=== PATIENT | male | born 1995 | race Caucasian/White ===

== ENCOUNTER 2016-11-08 18:33 | Emergency (ER) | payer BC ==
[2016-11-08 19:41] VITALS: BP 133/88
--- NOTE | 2016-11-08 21:26 | UC ---
Abdominal Pain Male HPI - HPI Summary HPI Summary: mid-abdomen pain, intermittent, for months. Comes and goes without pattern. Lasts an hour. Antacids sometimes help, sometimes not. He is worried it has to do with an umbilical hernia. Burps a lot and the gas smells "like sulfur". No fever. No vomiting or diarrhea. Occasional constipation. Not related to food. No FH gastrointestinal disorders. "What did you eat today?" "Chicken pot pie and [employer]." No weight loss recently. 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 Negative: Fever, Cough, Dizzy, Blood in Stool, Urinary Symptoms, Decreased Appetite, Vomiting, Diarrhea - Risk Factors Testicular Torsion: Negative Cardiac Risk Factors: Negative - Allergies/Home Medications Allergies/Adverse Reactions: Allergies Allergy/AdvReac Type Severity Reaction Status Date / Time No Known Allergies Allergy Verified 11/08/16 19:40 PMH/Surg Hx/FS Hx/Imm Hx Endocrine History Of: Denies: Diabetes, Thyroid Disease, Hyperthyroidism, Hypothyroidism, Dyslipidemia Cardiovascular History Of: Reports: Cardiac Disorders - "bicuspid aortic valve" Denies: Hypertension, Pacemaker/ICD, Myocardial Infarction, Congestive Heart Failure, Atrial Fibrillation, Deep Vein Thrombosis, Bleeding Disorders Respiratory History Of: Denies: COPD, Asthma, Bronchitis, Pneumonia, Pulmonary Embolism GI/ History Of: Denies: Gastroesophageal Reflux, Ulcer, Gastrointestinal Bleed, Gall Bladder Disease, Kidney Stones, Diverticulitis, Renal Disease, Urosepsis Neurological History Of: Denies: TIA, CVA, Dementia, Seizures, Migraine Psychological History Of: Denies: Anxiety, Depression, Bipolar Disorder, Schizophrenia, Post Traumatic Stress Disorder Cancer History Of: Denies: Lung Cancer, Colorectal Cancer, Breast Cancer, Prostate Cancer, Cervical Cancer Other History Of: Negative For: HIV, Hepatitis B, Hepatitis C, Anticoagulant Therapy - Surgical History Surgical History: None - Family History Known Family History: Positive: Cardiac Disease, Hypertension - Social History Occupation: Employed Full-time Lives: With Family Alcohol Use: Occasionally Substance Use Type: None Smoking Status (MU): Never Smoked Tobacco - Immunization History Most Recent Tetanus Shot: 04/27/16 Review of Systems Constitutional: Negative Skin: Negative Eyes: Negative ENT: Negative Respiratory: Negative Cardiovascular: Negative Gastrointestinal: Abdominal Pain Genitourinary: Negative Motor: Negative Neurovascular: Negative Musculoskeletal: Negative Neurological: Negative Psychological: Negative All Other Systems Reviewed And Are Negative: Yes Physical Exam Triage Information Reviewed: Yes Appearance: Well-Appearing, No Pain Distress, Well-Nourished Vital Signs: Initial Vital Signs Temp 99.1 F 11/08/16 19:34 Pulse 77 11/08/16 19:34 Resp 18 11/08/16 19:34 BP 133/88 11/08/16 19:34 Pulse Ox 99 11/08/16 19:34 Vital Signs Reviewed: Yes Eye Exam: Normal Neck exam: Normal Respiratory Exam: Normal Cardiovascular Exam: Normal Abdomen Description: Positive: Other: - Mild LLQ tenderness. No rebound or guarding. Soft, No organomegaly. Normal BS. Negative: CVA Tenderness (R), CVA Tenderness (L), Guarding, Hernia @, Hepatomegaly, McBurney's Point Tenderness, Peritoneal Signs Bowel Sounds: Positive: Present Musculoskeletal Exam: Normal Neurological Exam: Normal Psychological Exam: Normal Skin Exam: Normal Diagnostics - Laboratory Diagnostic Studies Completed/Ordered: AXR normal Abd Pain Male Course/Dx - Differential Dx/Clinical Impression Provider Diagnoses: gastritis Discharge - Discharge Plan Condition: Stable Disposition: HOME Prescriptions: Omeprazole CAP* [Prilosec CAP* 20 MG] 20 mg PO BEDTIME #30 cap. Patient Education Materials: Gastritis (ED) Referrals: JESUS Kendall [Primary Care Provider] - Jun Gallagher MD [Medical Doctor] - Additional Instructions: If our treatment isn't helping after a week, contact Dr. Gallagher ( Gastroenterology) for further evaluation
--- NOTE | 2016-11-08 21:54 | RAD ---
INDICATION: Evaluate for ileus COMPARISON: None TECHNIQUE: Erect and supine views of the abdomen are submitted. FINDINGS: Bones: There are no acute bony findings. Soft tissues: The soft tissues appear normal. The psoas margins are sharp. Bowel gas pattern: Normal Calcifications: There are no abnormal calcifications. Other: None IMPRESSION: NORMAL STUDY.
[2016-11-08] MEDS ORDERED: Famotidine TAB* 20 MG PO ONE (22:03)
== END 2016-11-08 22:13 | disposition home or self-care (01) ==
LOC: UCCORT 18:33
DX: K29.70 Gastritis, unspecified, without bleeding (principal)
CPT/HCPCS: 74020; 99212; A9270-GY; G0463

== ENCOUNTER 2017-07-17 11:08 | Emergency (ER) | payer BC ==
--- NOTE | 2017-07-17 11:17 | UC ---
Cardiac HPI - HPI Summary HPI Summary: 22 YEAR OLD MALE PRESENTS WITH LEFT SIDED INTERMITTENT CHEST PAIN X 2 DAYS - History of Current Complaint Stated Complaint: CHEST PAINS Time Seen by Provider: 07/17/17 11:17 Hx Obtained From: Patient Onset/Duration: Lasting Days Initial Severity: Moderate Current Severity: Moderate Chest Pain Location: Left Anterior - Allergy/Home Medications Allergies/Adverse Reactions: Allergies Allergy/AdvReac Type Severity Reaction Status Date / Time No Known Allergies Allergy Verified 07/17/17 11:23 Home Medications: Home Medications NK [No Home Medications Reported] 07/17/17 [History Confirmed 07/17/17] PMH/Surg Hx/FS Hx/Imm Hx Previously Healthy: Yes Other History Of: Negative For: HIV, Hepatitis B, Hepatitis C, Anticoagulant Therapy - Surgical History Surgical History: None - Family History Known Family History: Positive: Cardiac Disease, Hypertension - Social History Alcohol Use: Occasionally Substance Use Type: None Smoking Status (MU): Never Smoked Tobacco - Immunization History Most Recent Tetanus Shot: 04/27/16 Review of Systems Constitutional: Negative Skin: Negative Eyes: Negative ENT: Negative Respiratory: Negative Cardiovascular: Chest Pain Gastrointestinal: Negative Genitourinary: Negative Motor: Negative Neurovascular: Negative Musculoskeletal: Negative Neurological: Negative Psychological: Negative All Other Systems Reviewed And Are Negative: Yes Physical Exam Triage Information Reviewed: Yes Appearance: Well-Appearing Vital Signs Reviewed: Yes Eye Exam: Normal ENT Exam: Normal Dental Exam: Normal Neck exam: Normal Neck: Positive: 1 Respiratory Exam: Normal Cardiovascular Exam: Normal Abdominal Exam: Normal Musculoskeletal Exam: Normal Neurological Exam: Normal Psychological Exam: Normal Skin Exam: Normal - Clinical Impression Provider Diagnoses: CHEST PAIN Discharge - Discharge Plan Condition: Stable Disposition: HOME Patient Education Materials: Chest Pain (ED) Referrals: JESUS Kendall [Primary Care Provider] - Additional Instructions: PATIENT SUGGESTED TO GO TO THE ER FOR CARDIAC WORKUP.
[2017-07-17 11:23] VITALS: BP 125/75
== END 2017-07-17 11:29 | disposition home or self-care (01) ==
LOC: UCCORT 11:08
DX: R07.9 Chest pain, unspecified (principal)
CPT/HCPCS: 93005; 99202; G0463

== ENCOUNTER 2018-04-18 11:34 | Emergency (ER) | payer BC, OTHER ==
[2018-04-18 11:48] VITALS: BP 130/89
[2018-04-18] MEDS ORDERED: BSS OPTH.SOL* BTL ONE (11:52)
[2018-04-18] MEDS ORDERED: Fluorescein Sod TOPICAL 0.6* 0.6 MG TEST OPHTHALMIC ONE (11:52)
[2018-04-18] MEDS ORDERED: Tetracaine 0.5% OPTH.SOL 4 ML* 1 DROP BTL ONE (11:52)
--- NOTE | 2018-04-18 12:47 | UC ---
Eye Complaint HPI - HPI Summary HPI Summary: The patient is a 23-year-old male with a right eye foreign body sensation since about 10 AM this morning. This occurred at work while he was moving some rebar. Initially the pain was severe at 7 out of 10. While driving here his symptoms decreased and are now at 3-4 out of 10. He has no photophobia. He has a foreign body sensation under his right upper eyelid. Has some tearing. - History of Current Complaint Chief Complaint: UCEye Stated Complaint: WC - RIGHT EYE Time Seen by Provider: 04/18/18 12:25 Hx Obtained From: Patient Onset/Duration: Sudden Onset, Lasting Hours Timing: Constant Severity Initially: Severe Severity Currently: Mild Pain Intensity: 4 Pain Scale Used: 0-10 Numeric Location of Injury: Eye Lid (upper) Aggravating Factor(s): Nothing Associated Signs And Symptoms: Positive: Drainage (Clear) - Risk Factors Penetrating Injury Risk Factor: Negative Globe Rupture Risk Factors: Negative Acute Glaucoma Risk Factors: Negative Optic Artery Occlusion Risk Factors: Negative - Allergies/Home Medications Allergies/Adverse Reactions: Allergies Allergy/AdvReac Type Severity Reaction Status Date / Time No Known Allergies Allergy Verified 04/18/18 11:43 PMH/Surg Hx/FS Hx/Imm Hx Previously Healthy: Yes Other History Of: Negative For: HIV, Hepatitis B, Hepatitis C, Anticoagulant Therapy - Surgical History Surgical History: None - Family History Known Family History: Positive: Cardiac Disease, Hypertension - Social History Alcohol Use: Occasionally Substance Use Type: None Smoking Status (MU): Never Smoked Tobacco - Immunization History Most Recent Influenza Vaccination: not 2017 Most Recent Tetanus Shot: 04/27/16 Review of Systems Constitutional: Negative Skin: Negative Eyes: Other - FB sensation under right upper eyelid ENT: Negative Respiratory: Negative Cardiovascular: Negative Gastrointestinal: Negative Genitourinary: Negative Motor: Negative Neurovascular: Negative Musculoskeletal: Negative Neurological: Negative Psychological: Negative Is Patient Immunocompromised?: No All Other Systems Reviewed And Are Negative: Yes Physical Exam Triage Information Reviewed: Yes Appearance: Well-Appearing, No Pain Distress, Well-Nourished Vital Signs: Initial Vital Signs Temp 98.3 F 04/18/18 11:44 Pulse 73 04/18/18 11:44 Resp 16 04/18/18 11:44 BP 130/89 04/18/18 11:44 Pulse Ox 100 07/05/18 11:44 Vital Signs Reviewed: Yes Eyes: Positive: Conjunctiva Clear, Other: - eomi/perrl, no FB noted, (-) fluorescein staining defect, right upper lid everted and no FB noted. ENT: Positive: Hearing grossly normal. Negative: Nasal congestion, Nasal drainage, Trismus, Muffled voice, Hoarse voice Neck: Positive: Supple Respiratory: Positive: Lungs clear, Normal breath sounds, No respiratory distress, No accessory muscle use Cardiovascular: Positive: RRR, No Murmur Musculoskeletal: Positive: ROM Intact, No Edema Neurological: Positive: Alert Psychological Exam: Normal Skin Exam: Normal Eye Complaint Course/Dx - Differential Dx/Diagnosis Provider Diagnoses: right eye foreign body sensation Discharge - Sign-Out/Discharge Documenting (check all that apply): Discharge/Admit/Transfer - Discharge Plan Condition: Stable Disposition: HOME Prescriptions: Erythromycin OPHTH.OINT* [Ilotycin OPHTH.OINT*] 1 applic RIGHT EYE TID 3 Days # 1 ophth.oint Patient Education Materials: Eye Foreign Body (ED) Referrals: Trey Farias MD [Medical Doctor] - 1 Day JESUS Kendall [Primary Care Provider] - If Needed Brie Knapp MD [Medical Doctor] - 1 Day Additional Instructions: I saw no foreign body in your eye I saw no corneal abrasion If you still have a FB sensation in you right eye tomorrow I suggest you see a specialist - Billing Disposition and Condition Condition: STABLE Disposition: Home
== END 2018-04-18 12:47 | disposition home or self-care (01) ==
LOC: UCCORT 11:34
DX: H57.8 Other specified disorders of eye and adnexa (principal)
CPT/HCPCS: 99212; A9270-GY; G0463

== ENCOUNTER 2018-10-05 19:03 | Emergency (ER) | payer BC, OTHER ==
[2018-10-05 20:06] VITALS: BP 135/91
[2018-10-05] MEDS ORDERED: Acyclovir* 200 MG CAP PO ONE (20:22)
--- NOTE | 2018-10-05 20:28 | UC ---
Skin Complaint HPI - HPI Summary HPI Summary: C/O rash around the right flank after having a numb area on the right side of the abdomen. Had recent hospitalization for chest pain due to GERD/ dysphagia. - History of Current Complaint Chief Complaint: UCSkin Time Seen by Provider: 10/05/18 20:14 Stated Complaint: RASH ON BACK Hx Obtained From: Patient Onset/Duration: Sudden Onset, Lasting Days - 1, Worse Since - onset Timing: Constant Onset Severity: Mild Current Severity: Moderate Pain Intensity: 7 Location: Discrete - right flank Character: Redness, Raised Aggravating Factor(s): Touch Alleviating Factor(s): Nothing Associated Signs & Symptoms: Positive: Numbness, Rash. Negative: Fever, Chills , Hoarseness, Throat Tightening, Abdominal Pain - Allergy/Home Medications Allergies/Adverse Reactions: Allergies Allergy/AdvReac Type Severity Reaction Status Date / Time No Known Allergies Allergy Verified 10/05/18 20:00 Home Medications: Home Medications Omeprazole CAP* [Prilosec CAP* 20 MG] 20 mg PO DAILY 10/05/18 [History Confirmed 10/05/18] PMH/Surg Hx/FS Hx/Imm Hx GI/ History: Gastroesophageal Reflux Other History Of: Negative For: HIV, Hepatitis B, Hepatitis C, Anticoagulant Therapy - Surgical History Surgical History: None - Family History Known Family History: Positive: Cardiac Disease, Hypertension - Social History Occupation: Employed Full-time Lives: With Family Alcohol Use: Occasionally Substance Use Type: None Smoking Status (MU): Never Smoked Tobacco - Immunization History Most Recent Influenza Vaccination: not 2017 Most Recent Tetanus Shot: 04/27/16 Review of Systems All Other Systems Reviewed And Are Negative: Yes Skin: Positive: Rash Neurological: Positive: Numbness Is Patient Immunocompromised?: No Physical Exam Triage Information Reviewed: Yes Appearance: Well-Appearing, No Pain Distress, Obese Vital Signs: Initial Vital Signs Temp 99.1 F 10/05/18 20:02 Pulse 101 10/05/18 20:02 Resp 24 10/05/18 20:02 BP 135/91 10/05/18 20:02 Pulse Ox 98 10/05/18 20:02 Vital Signs Reviewed: Yes Eyes: Positive: Conjunctiva Clear Neck exam: Normal Respiratory Exam: Normal Cardiovascular Exam: Normal Musculoskeletal Exam: Normal Neurological Exam: Normal Skin: Positive: Rashes - grouped papules in a dermatomal distribution right flank. Images Front/Back of Body, Lg (Richardson): 1 - grouped papules Course/Dx - Differential Diagnoses - Skin Complaint Differential Diagnoses: Cellulitis, Eczema, Varicella Zoster - Diagnoses Provider Diagnosis: Zoster Discharge - Sign-Out/Discharge Documenting (check all that apply): Patient Departure All imaging exams completed and their final reports reviewed: No Studies - Discharge Plan Condition: Stable Disposition: HOME Prescriptions: ValACYclovir (*) [Valtrex 1 GM(*)] 1 gm PO TID #21 tab Patient Education Materials: Shingles (ED), Valacyclovir (By mouth) Referrals: No Primary Care Phys,NOPCP [Primary Care Provider] - - Billing Disposition and Condition Condition: STABLE Disposition: Home
== END 2018-10-05 20:38 | disposition home or self-care (01) ==
LOC: UCCORT 19:03
DX: B02.9 Zoster without complications (principal)
CPT/HCPCS: 99212; A9270-GY; G0463

== ENCOUNTER 2019-11-18 15:46 | Emergency (ER) | payer BC ==
[2019-11-18 17:01] VITALS: BP 144/97
--- NOTE | 2019-11-18 17:07 | UC ---
FLU HPI - HPI Summary HPI Summary: 24-year-old male presents with 4 day history of sore throat. States that the onset of symptoms also had some mild body aches which have since subsided. He notes an occasional dry nonproductive cough. Denies fever, chills, nasal congestion, ear pain, dysphagia, chest pain, shortness of breath, abdominal pain , nausea, or vomiting. - History of Current Complaint Chief Complaint: UCGeneralIllness Stated Complaint: SORE THROAT Time Seen by Provider: 11/18/19 16:50 Hx Obtained From: Patient Pain Intensity: 6 - Allergy/Home Medications Allergies/Adverse Reactions: Allergies Allergy/AdvReac Type Severity Reaction Status Date / Time No Known Allergies Allergy Verified 11/18/19 16:56 Home Medications: Home Medications Acetaminophen [Tylenol Extra Strength] 2 tab PO ONCE 11/18/19 [History Confirmed 11/18/19] PMH/Surg Hx/FS Hx/Imm Hx GI/ History: Gastroesophageal Reflux Other History Of: Negative For: HIV, Hepatitis B, Hepatitis C, Anticoagulant Therapy - Surgical History Surgical History: None - Family History Known Family History: Positive: Cardiac Disease, Hypertension - Social History Occupation: Employed Full-time Lives: Alone Alcohol Use: Occasionally Substance Use Type: None Smoking Status (MU): Never Smoked Tobacco - Immunization History Most Recent Influenza Vaccination: not 2017 Most Recent Tetanus Shot: 04/27/16 Review of Systems All Other Systems Reviewed And Are Negative: Yes Constitutional: Negative: Fever, Chills Eyes: Negative: Drainage, Eye Redness ENT: Positive: Sore Throat. Negative: Ear Ache, Nasal Discharge, Sinus Congestion, Sinus Pain/Tenderness Respiratory: Positive: Cough. Negative: Shortness Of Breath Cardiovascular: Negative: Palpitations, Chest Pain Gastrointestinal: Negative: Abdominal Pain, Vomiting, Nausea Genitourinary: Positive: Negative Musculoskeletal: Positive: Myalgia Neurological: Positive: Negative Is Patient Immunocompromised?: No Physical Exam - Summary Physical Exam Summary: GENERAL APPEARANCE: Well developed, well nourished, alert and cooperative, and appears to be in no acute distress. EYES: Conjunctiva clear. No drainage. EARS: External auditory canals and tympanic membranes clear, hearing grossly intact. NOSE: No nasal discharge. THROAT: Pharyngeal erythema. 2+ tonsils without exudate. Uvula midline. NECK: Neck supple, non-tender without lymphadenopathy. CARDIAC: Normal S1 and S2. No S3, S4 or murmurs. Rhythm is regular. There is no peripheral edema, cyanosis or pallor. Extremities are warm and well perfused. Capillary refill is less than 2 seconds. Peripheral pulses intact. LUNGS: Clear to auscultation without rales, rhonchi, wheezing or diminished breath sounds. Cough nonobserved. ABDOMEN: Positive bowel sounds. Soft, nondistended, nontender. No guarding or rebound. No masses or hepatosplenomegally. MUSKULOSKELETAL: ROM intact to all extremities. No joint erythema or tenderness. Normal muscular development. Normal gait. SKIN: Skin normal color, texture and turgor with no lesions or eruptions. Triage Information Reviewed: Yes Vital Signs: Initial Vital Signs Temp 98.6 F 11/18/19 16:56 Pulse 100 11/18/19 16:56 Resp 16 11/18/19 16:56 BP 144/97 11/18/19 16:56 Pulse Ox 97 11/18/19 16:56 Vital Signs Reviewed: Yes Flu Course/Dx - Course Course Of Treatment: 24-year-old male presents with 4 day history of sore throat. States that the onset of symptoms also had some mild body aches which have since subsided. He notes an occasional dry nonproductive cough. Denies fever, chills, nasal congestion, ear pain, dysphagia, chest pain, shortness of breath, abdominal pain , nausea, or vomiting. Afebrile. Hypertensive otherwise vital signs stable. Patient had no nasal congestion, normal TMs, pharyngeal erythema with 2+ tonsils without exudate, uvula is midline, no cervical lymphadenopathy, clear bilateral breath sounds, and otherwise unremarkable exam. Rapid strep test was negative. Reviewed results with the patient. We discussed that his symptoms were most likely from a viral pharyngitis and I'm recommending symptomatic treatment at this time. He is to follow-up here or with primary care in 5-7 days if symptoms are not improving. Anticipatory guidance and warning symptoms reviewed with the patient. Verbalizes understanding and agrees with plan of care. - Differential Dx/Diagnosis Differential Diagnosis/HQI/PQRI: Bronchitis, Influenza, Pneumonia, Upper Respiratory Infection, Other - Pharyngitis Provider Diagnosis: Acute viral pharyngitis Discharge ED - Sign-Out/Discharge Documenting (check all that apply): Patient Departure All imaging exams completed and their final reports reviewed: No Studies - Discharge Plan Condition: Stable Disposition: HOME Patient Education Materials: Pharyngitis (ED) Referrals: No Primary Care Phys,NOPCP [Primary Care Provider] - [facility] [Outside] Additional Instructions: Your rapid strep test in the clinic today was negative. Your symptoms are likely from a viral infection. Viral infections do not respond to antibiotics and are limited to the treatment of symptoms. Viral infections typically run their course in 7-10 days. Drink plenty of fluids to avoid dehydration especially if you are running any fever. Use salt water gargles several times a day. Take over the counter acetaminophen (Tylenol), ibuprofen (Advil, Motrin), or naproxen (Aleve) according to directions as needed for pain or fever. You may also use Chloraseptic spray or Cepacol lonzenges according to directions which contain a numbing medication and can provide some temporary relief from your sore throat. Return here or follow up with primary care in 5-7 days if symptoms persist. Provider G with the contact information for the [facility] physician referral service if he needs assistance with establishing with a provider. Seek immediate medical attention in the emergency room if you have fever greater than 100.5 F despite taking acetaminophen or ibuprofen, are unable to swallow or develop drooling, are unable to open your mouth fully, are unable to eat or drink, have pain that is not relieved with over the counter pain medication, or have any difficulty breathing. - Billing Disposition and Condition Condition: STABLE Disposition: Home
== END 2019-11-18 17:33 | disposition home or self-care (01) ==
LOC: UCCORT 15:46
DX: J02.8 Acute pharyngitis due to other specified organisms (principal)
CPT/HCPCS: 87651; 99211; G0463